=== PATIENT | female | born 1940 | race Caucasian/White ===

== ENCOUNTER 2018-04-23 20:32 | Inpatient (IN) | payer MEDICARE, OTHER ==
[~2018-04-23] VITALS: Ht 157.5 cm; Wt 59.9 kg
--- NOTE | 2018-04-23 21:01 | NUR ---
Xray at bedside
[2018-04-23 21:10] LABS: BASOPHILS % (AUTO) 0.6 % (0.0-2.0); EOSINOPHILS % (AUTO) 0.5 % (0.0-7.0); HEMATOCRIT 41.3 % (31.2-41.9); HEMOGLOBIN 14.1 g/dL (10.9-14.3); LYMPHOCYTES # (AUTO) 1.5 K/uL (20.0-40.0); LYMPHOCYTES % (AUTO) 23.1 % (20.5-51.5); MEAN CORPUSCULAR HEMOGLOBIN 30.6 uug (24.7-32.8); MEAN CORPUSCULAR HGB CONC 34 g/dL (32.3-35.6); MEAN CORPUSCULAR VOLUME 89.6 fL (75.5-95.3); MONOCYTES # (AUTO) 0.5 K/uL (2.0-10.0); NEUTROPHILS # (AUTO) 4.3 K/uL (1.8-8.9); NEUTROPHILS % (AUTO) 67.8 % (38.5-71.5); PLATELET COUNT (AUTO) 196 K/uL (179-408); RED BLOOD CELL COUNT(AUTO) 4.61 MIL/uL (3.63-4.92); WHITE BLOOD COUNT (AUTO) 6.3 K/uL (3.8-11.8)
[2018-04-23] MEDS ORDERED: ESCI5TAB PO (21:15)
[2018-04-23] MEDS ORDERED: ZOLP10TA6 PO (21:15)
[2018-04-23] MEDS ORDERED: QUET50TA PO (21:15)
[2018-04-23] MEDS ORDERED: RISP2TAB23 PO (21:15)
[2018-04-23] MEDS ORDERED: CLON0.5T12 PO (21:15)
[2018-04-23] MEDS ORDERED: MAGN400O6 PO (21:15)
[2018-04-23] MEDS ORDERED: ACET-2154 PO (21:15)
[2018-04-23] MEDS ORDERED: ATOR20TA PO (21:15)
[2018-04-23] MEDS ORDERED: GABA-534 PO (21:15)
[2018-04-23 21:22] LABS: ETHANOL < 3 MG/DL (0-0)
[2018-04-23 21:32] LABS: CARBON DIOXIDE 26 mmol/L (21-32); CHLORIDE 105 mmol/L (98-107); CREATININE 0.7 mg/dL (0.6-1.3); GLUCOSE 123 mg/dL (74-106); POTASSIUM 3.9 mmol/L (3.5-5.1); UREA NITROGEN, BLOOD 15 mg/dL (7-18)
[2018-04-23 21:36] LABS: ACETAMINOPHEN < 2.0 ug/mL (10-30); ALANINE AMINOTRANSFERASE 19 U/L (14-59); ALKALINE PHOSPHATASE 101 U/L (50-136); ASPARTATE AMINOTRANSFERASE 9 U/L (15-37); BILIRUBIN,DIRECT 0.1 mg/dL (0.0-0.2); BILIRUBIN,TOTAL 0.3 mg/dL (0.2-1.0); THYROID STIMULATING HORMONE 0.806 mIU/mL (0.358-3.740); TOTAL PROTEIN, SERUM 6.6 g/dL (6.4-8.2)
--- NOTE | 2018-04-23 21:49 | NUR ---
Report given to Jana RAPHAEL on [facility]. Patient admitted under Dr. Wiley/Audra. Dx: Psychosis. On 5150 hold for DTS
[2018-04-23 22:30] VITALS: BP 152/97
[2018-04-23] MEDS ORDERED: MAGNESIUM HYDROXIDE 30 ML LIQUID UDC PO PRN ×2 (22:30→23:00)
[2018-04-23] MEDS ORDERED: MAG HYDROX/AL HYDROX/SIMETH 30 ML LIQUID UDC PO PRN (22:30)
[2018-04-23] MEDS: TEMAZEPAM 7.5 MG CAPSULE PO PRN (23:02)
--- NOTE | 2018-04-23 23:35 | NUR ---
received to care, at 2209, from the emergency room, on a 72 hour hold for danger to self/ gravely disabled, a transfer from [facility]. according to the hold, she stated to the staff at [facility] that she planned on going to [place], and overdosing on her prescription meds. she discontinued taking her risperdal 2 weeks ago, and became paranoid toward neighbors, and now, towards doctors, nurses, and staff. pt has a past history of inpatient psychiatric hospitalizations, but she "doesn't like to talk about it". upon arrival on the unit, she immediately denied being suicidal, but stated she feels "depressed". she was cooperative with interview, but very guarded, and paranoid. she was disheveled, but declined to take a shower. she was assisted to bed. PRN restoril was given for insomnia, at 2301. as of 2334, she appears to be asleep. no distress noted. will continue to monitor closely.
--- NOTE | 2018-04-24 00:15 | NUR ---
pt is now awake. lying in bed, talking to self. will continue to monitor closely.
[2018-04-24] MEDS: LORAZEPAM 1 MG TABLET PO PRN (03:47)
--- NOTE | 2018-04-24 03:47 | NUR ---
pt has not slept. talkin gto self. intrusive into nurses station, requiring frequent redirection. pt is now verbalizing paranoid thoughts about "people" who are after her. pt was reassured, but remains anxious. PRN ativan was given at this time. will continue to monitor closely.
[2018-04-24] MEDS: ACETAMINOPHEN 325 MG TABLET PO PRN ×2 (05:58→13:17)
--- NOTE | 2018-04-24 06:00 | NUR ---
slept 1.75 hours. remains in bed. no distress noted.
[2018-04-24 07:30] VITALS: BP 106/75
--- NOTE | 2018-04-24 07:45 | NUR ---
REPORT RECEIVED FROM THAIS GUSMAN.
[2018-04-24] MEDS: GABAPENTIN 300 MG CAPSULE PO SCH ×4 (09:37→17:08)
--- NOTE | 2018-04-24 09:42 | NUR ---
PATIENT IS IN ROOM AWAKE. COMPLAINT WITH MEDICATION. STATES SHE NEEDS DENTURES TO EAT PROPERLY. WILL CHECK IF DENTURES WERE BROUGHT IN WITH HER.
--- NOTE | 2018-04-24 11:50 | NUR ---
Firearms Report: Digital Ad Trafficker completed and submitted [employer] Firearms Report on 04/24/18 for 5150 DTS and GD certification.
--- NOTE | 2018-04-24 12:16 | NUR ---
PATIENT IS NONVERBAL. EYES OPEN GIVING MEDICATION. PATIENT CLOSES EYES DOES NOT WANT TO RESPOND VERBALLY. LUNCH OFFERED CONTINUES TO CLOSE EYES AND NOT RESPOND. ALLOWED PATIENT TO REST - HAD MINIMAL SLEEP OVERNIGHT.
[2018-04-24 15:46] VITALS: BP 141/87
--- NOTE | 2018-04-24 15:52 | NUR ---
Initial Discharge Instructions: Patient was living at home [[address], [place] [address]; [phone]]. Patient refused to participate in social media community manager interview and said, "I don't want to talk about it," when asked about her living situation. SW attempted to contact the patient's son, Abebe ([phone]) twice; however, there was no answer either time. SW left a message to the son for a return call. TALHA will continue to follow-up with patient and son to gather more collateral information, as well as collaborate with pt, family, and MD regarding appropriate discharge plans for this patient. SW will form a safe and proper discharge plan.
[2018-04-24] MEDS: ATORVASTATIN 20 MG TABLET PO SCH (20:09)
[2018-04-24 20:32] VITALS: BP 129/88
[2018-04-24] MEDS ORDERED: risperiDONE 2 MG TABLET PO ONE (23:30)
[2018-04-25] MEDS: TEMAZEPAM 7.5 MG CAPSULE PO PRN (02:05)
--- NOTE | 2018-04-25 02:06 | NUR ---
GPS: Pt.still awake at this time. Paranoid,delusional and argumentative with staff. Refused to be re-directed. Thinks staff are laughing about her for no reason. Claims Risperdal med.that psychiatrist started on her does not work. Re-assured prn. Offered a sleeping pill and said "yes" but when staff giving med.she refused it despite risks vs.benefits x3. Will monitor behavior for further escalation. Quiet environment provided to facilitate sleep. Appears to be talking to self at times.
[2018-04-25 07:30] VITALS: BP 121/85
[2018-04-25] MEDS: ESCITALOPRAM OXALATE 10 MG TABLET PO SCH (09:10)
[2018-04-25] MEDS: GABAPENTIN 300 MG CAPSULE PO SCH ×3 (09:11→17:00)
--- NOTE | 2018-04-25 11:02 | NUR ---
Noted pt standing in the hallway, when asked if she was okay she stated, "I want to talk to somebody" "Im scared for my safety". When asked from whom, pt. stated "from other people" Pt refused to further go into details with me. The pt was guided to the activities room.
--- NOTE | 2018-04-25 14:31 | NUR ---
Noted pt in the hallway, after asking if she was ok she stated she had a headache. Informed I would get her Tylenol and she stated ok. After taking the Tylenol to her, she refused the medication. Tylenol wasted properly
[2018-04-25 15:33] VITALS: BP 132/83
--- NOTE | 2018-04-25 17:21 | NUR ---
Pt. refused Neurontin, stating she only takes it once a day. Explain risks and benefits, offered 3 times, pt.still refused
--- NOTE | 2018-04-25 18:54 | NUR ---
Pt was noted in her gown and laying in her bed most of day however saw the pt walk up and down the hallways a few times. Pt was complaint with morning medications but refused Tylenol for her headache and refused her 1700HRS neurontin. Flat affect noted.
[2018-04-25 20:00] VITALS: BP 113/73
[2018-04-25] MEDS: risperiDONE 2 MG TABLET PO SCH (20:03)
[2018-04-25] MEDS: ACETAMINOPHEN 325 MG TABLET PO PRN (20:03)
[2018-04-25] MEDS: ATORVASTATIN 20 MG TABLET PO SCH (20:03)
--- NOTE | 2018-04-25 21:26 | NUR ---
GPS: Pt. took bedtime meds. earlier after a lot of persuasion from staff. Pt.is paranoid,suspicious and manipulative. Argumentative and confrontational when she does not get what she wants. Re-directed and re-assured frequently. Will continue to monitor.
[2018-04-26 07:30] VITALS: BP 111/65
[2018-04-26] MEDS: GABAPENTIN 300 MG CAPSULE PO SCH ×3 (09:49→17:44)
[2018-04-26] MEDS: ESCITALOPRAM OXALATE 10 MG TABLET PO SCH (09:50)
[2018-04-26 15:36] VITALS: BP 136/77
--- NOTE | 2018-04-26 18:36 | NUR ---
patient has been intrusive going in and out of other patients rooms with frequent re direction and her speech is pressured and patient stated she s not hungry when asked too eat, dishelved clothing continue to monitor for safety
[2018-04-26 20:00] VITALS: BP 126/78
[2018-04-26] MEDS: risperiDONE 2 MG TABLET PO SCH (20:18)
[2018-04-26] MEDS: ATORVASTATIN 20 MG TABLET PO SCH (20:18)
[2018-04-26] MEDS: LORAZEPAM 1 MG TABLET PO PRN ×2 (21:30→21:49)
--- NOTE | 2018-04-26 21:50 | NUR ---
GPS: PATIENT IS VERY AGITATED WONDERING AROUND TO MALE ROOM. CONFUSED AND DISORIENTED. REORIENTATION PROVIDED. ATIVAN 1 MG PO GIVEN FOR AGITATION.
--- NOTE | 2018-04-26 22:50 | NUR ---
GPS: PATIENT SLEEPING QUIETLY NOW. NO MORE AGITATION NOTED PRN EFFECTIVE FOR AGITATION.
--- NOTE | 2018-04-27 06:02 | NUR ---
GPS: REMAIN CALM AFTER ATIVAN GIVEN LAST NIGHT. SLEPT 6:30 HRS THROUGH THE NIGHT. NO BEHAVIOR PROBLEM NOTED AT THIS TIME CONTINUE PLAN OF CARE.
[2018-04-27 07:30] VITALS: BP 117/77
[2018-04-27] MEDS: GABAPENTIN 300 MG CAPSULE PO SCH ×3 (09:00→16:19)
[2018-04-27] MEDS: ESCITALOPRAM OXALATE 10 MG TABLET PO SCH ×2 (09:00→17:23)
[2018-04-27] MEDS: LORAZEPAM 1 MG TABLET PO PRN ×2 (10:33→17:24)
[2018-04-27 16:21] VITALS: BP 148/88
[2018-04-27 19:45] VITALS: BP 119/68
[2018-04-27] MEDS: ATORVASTATIN 20 MG TABLET PO SCH (20:19)
[2018-04-27] MEDS: risperiDONE 2 MG TABLET PO SCH (20:19)
[2018-04-27] MEDS: TEMAZEPAM 7.5 MG CAPSULE PO PRN (22:48)
--- NOTE | 2018-04-27 22:49 | NUR ---
GPS: Pt.requested for a sleeping pill,but when staff about to offer it,pt.refused it despite explanation of risks.vs benefits x3. Pt.is paranoid,suspicious and intrusive at this time. Re-directed at this time. Quiet environment provided to facilitate sleep. Will continue to monitor.
[2018-04-28] MEDS: LORAZEPAM 1 MG TABLET PO PRN (00:47)
--- NOTE | 2018-04-28 00:47 | NUR ---
GPS: Pt.came out to the nursing station and feeling anxious. Paranoid and delusional . Re-assured and re-directed. Agreed to take Ativan 1mg PO which she did. Will monitor effectiveness.
[2018-04-28 07:30] VITALS: BP 108/57
[2018-04-28] MEDS: ESCITALOPRAM OXALATE 10 MG TABLET PO SCH ×2 (09:00→14:24)
[2018-04-28] MEDS: risperiDONE 1 MG TABLET PO SCH ×2 (09:00→14:24)
[2018-04-28] MEDS: GABAPENTIN 300 MG CAPSULE PO SCH ×3 (09:00→17:00)
[2018-04-28 16:04] VITALS: BP 133/89
[2018-04-28] MEDS: risperiDONE 2 MG TABLET PO SCH (20:27)
[2018-04-28] MEDS: ATORVASTATIN 20 MG TABLET PO SCH (20:27)
[2018-04-28 20:43] VITALS: BP 127/83
--- NOTE | 2018-04-29 00:07 | NUR ---
GPS: Pt. just sitting outside by her room in the hallway. Refused her bedtime meds.earlier despite explanation of importance. Refused to have any interaction with the staff. Paranoid and suspicious. Re-directed prn. Restoril 7.5 mg was offered but refused. Will continue to monitor.
--- NOTE | 2018-04-29 04:04 | NUR ---
GPS: Pt.keeps coming to the nurses station at this time. Paranoid,suspicious and intrusive. Constant re-direction provided. Ativan 1mg PO offered several times for anxiety but refused. Monitored for further escalation of behavior.
[2018-04-29 07:46] LABS: BASOPHILS % (AUTO) 0.7 % (0.0-2.0); EOSINOPHILS # (AUTO) 0.1 K/uL (0.0-0.7); EOSINOPHILS % (AUTO) 1.3 % (0.0-7.0); HEMATOCRIT 37.3 % (31.2-41.9); LYMPHOCYTES # (AUTO) 1.4 K/uL (20.0-40.0); LYMPHOCYTES % (AUTO) 22.5 % (20.5-51.5); MEAN CORPUSCULAR HEMOGLOBIN 31.2 uug (24.7-32.8); MEAN CORPUSCULAR HGB CONC 35 g/dL (32.3-35.6); MEAN CORPUSCULAR VOLUME 89.5 fL (75.5-95.3); MONOCYTES # (AUTO) 0.5 K/uL (2.0-10.0); MONOCYTES % (AUTO) 8.5 % (0.0-11.0); NEUTROPHILS # (AUTO) 4.1 K/uL (1.8-8.9); PLATELET COUNT (AUTO) 203 K/uL (179-408); RED BLOOD CELL COUNT(AUTO) 4.17 MIL/uL (3.63-4.92); WHITE BLOOD COUNT (AUTO) 6.1 K/uL (3.8-11.8)
[2018-04-29 07:56] LABS: CARBON DIOXIDE 28 mmol/L (21-32); CHLORIDE 105 mmol/L (98-107); CREATININE 0.8 mg/dL (0.6-1.3); GLUCOSE 105 mg/dL (74-106); POTASSIUM 4.2 mmol/L (3.5-5.1); UREA NITROGEN, BLOOD 22 mg/dL (7-18)
[2018-04-29] MEDS: ESCITALOPRAM OXALATE 10 MG TABLET PO SCH (09:00)
[2018-04-29] MEDS: GABAPENTIN 300 MG CAPSULE PO SCH ×3 (09:00→17:17)
[2018-04-29] MEDS: risperiDONE 1 MG TABLET PO SCH (09:00)
[2018-04-29 09:13] VITALS: BP 136/90
[2018-04-29] MEDS: risperiDONE 2 MG TABLET PO SCH ×2 (13:27→21:00)
[2018-04-29 15:51] VITALS: BP 119/73
[2018-04-29 20:15] VITALS: BP 129/73
[2018-04-29] MEDS: ATORVASTATIN 20 MG TABLET PO SCH (21:00)
[2018-04-30] MEDS: TEMAZEPAM 7.5 MG CAPSULE PO PRN (01:23)
[2018-04-30] MEDS: ACETAMINOPHEN 325 MG TABLET PO PRN (01:23)
[2018-04-30 08:00] VITALS: BP 136/83
[2018-04-30] MEDS: GABAPENTIN 300 MG CAPSULE PO SCH ×3 (09:00→17:51)
[2018-04-30] MEDS: risperiDONE 1 MG TABLET PO SCH (09:00)
[2018-04-30] MEDS: ESCITALOPRAM OXALATE 10 MG TABLET PO SCH (09:00)
--- NOTE | 2018-04-30 10:02 | NUR ---
offered 4x her morning medications ,explaining the risk and benefit but patient strongly refused, paranoid stated " I'm not taking it , this not my medications. " Patient continue responding to internal stimuli- reality orientation provided prn.
[2018-04-30 16:02] VITALS: BP 153/87
[2018-04-30 21:05] VITALS: BP 119/66
[2018-04-30] MEDS: ATORVASTATIN 20 MG TABLET PO SCH (21:16)
[2018-04-30] MEDS: risperiDONE 2 MG TABLET PO SCH (21:16)
[2018-05-01] MEDS: TEMAZEPAM 7.5 MG CAPSULE PO PRN (01:07)
--- NOTE | 2018-05-01 04:31 | NUR ---
GPS/NSG Patient first observed awake in room, oriented to name and place. Patient was compliant with medication however later in the shift found her coming out of the room repeatedly claiming she had not received her medication. Patient's appearance unkempt and disheveled. Patient uncooperative, required frequent redirection required security assistance to escort patient to her room after prn for insomnia was administered patient insisted on remaining out in the hallway making random demands ie: fixodent, sandwich, medication. Poor eye contact when engaged, speech garbled with disorganized thought process, bizarre and tangental, displayed delusional behavior by responding to internal stimuli. Affect appeared flat with low mood also noted were periods with increased agitation. Overall poor judgement and insight, unable to formulate plan for self care. Patient unable to deny suicidal ideation, remains silent when asked. Will continue to monitor for safety.
--- NOTE | 2018-05-01 06:12 | NUR ---
Patient visible on unit, uncooperative stating "you killed my son" -"you know you did". Patient escorted to room by staff, patient is unmanageable and continues to display bizarre affect, body language and behavior. prn for insomnia administered with ineffective outcome, patient slept a total of two and a half hours.
[2018-05-01 07:30] VITALS: BP 128/76
--- NOTE | 2018-05-01 07:35 | NUR ---
PATIENT RECEIVED ROAMING HALLWAYS, A AND O X 1, FLAT AFFECT NOTED, NEEDS CONSTANT REDIRECTION. PER CHAIRMAN & CEO, PATIENT ONLY SLEPT 2 HOURS. CONTINUES TO BE NON COMPLIANT WITH MEDICATION. RIESE HEARING TO BE SCHEDULED. SAFETY PRECS OBSERVED AT ALL TIMES. COMFORT MEASURES PROVIDED. WILL CONTINUE TO MONITOR CLOSELY.
[2018-05-01] MEDS: risperiDONE 1 MG TABLET PO SCH ×3 (08:01→16:51)
[2018-05-01] MEDS: GABAPENTIN 300 MG CAPSULE PO SCH ×4 (08:01→16:50)
[2018-05-01] MEDS: ESCITALOPRAM OXALATE 10 MG TABLET PO SCH ×2 (08:01→08:39)
[2018-05-01 14:27] VITALS: BP 131/81
--- NOTE | 2018-05-01 16:53 | NUR ---
ADMINISTERED RISPERIDONE 1MG NOW PER DR. MOLINA'S ORDERS. PATIENT TRIED TO ARGUE STATING "I DIDN'T SAY WHAT TIME I WOULD TAKE IT". REORIENTED PATIENT THAT SHE WAS JUST SEEN BY DR. MOLINA AND SHE AGREED TO TAKE IT MEDICATION NOW. WILL CONTINUE TO MONITOR.
[2018-05-01 20:00] VITALS: BP 131/80
--- NOTE | 2018-05-01 20:00 | NUR ---
RECEIVED PATIENT STANDING IN DOORWAY. ALERT TO SELF ONLY. CATATONIC/FLAT AFFECT NOTED. NEEDS FREQUENT REDIRECTION. ASSISTED PATIENT TO SIT IN CHAIR. VERY PASSIVE WHEN SPOKEN TO. NO S/S OF PAIN OR DISCOMFORT. VS WNL. WILL CONTINUE TO MONITOR AND ASSESS.
[2018-05-01] MEDS: ATORVASTATIN 20 MG TABLET PO SCH (20:34)
[2018-05-01] MEDS: risperiDONE 2 MG TABLET PO SCH (20:34)
--- NOTE | 2018-05-02 00:55 | NUR ---
PATIENT OOB AND LIED HER DOWN ON THE FLOOR IN THE MIDDLE OF THE HALLWAY. REFUSING TO GET UP. ASSISTED PATIENT BACK IN BED. BED ALARM ON. WILL CONTINUE TO MONITOR AND ASSESS.
--- NOTE | 2018-05-02 01:00 | NUR ---
PATIENT BACK OOB AGAIN. ASSISTED PATIENT TO SARINA-CHAIR. PATIENT IS VERY CONFUSED AND DISORIENTED. NEEDS FREQUENT REDIRECTION. WILL CONTINUE TO MONITOR AND ASSESS.
--- NOTE | 2018-05-02 06:48 | NUR ---
PATIENT AWAKE. SLEPT A TOTAL OF 1 HOUR AND 30 MINUTES. FLAT AFFECT AND VERY PASSIVE WHEN APPROACHED. NO S/S OF PAIN OR DISCOMFORT. ALL NEEDS ATTENDED. WILL CONTINUE TO MONITOR AND ASSESS.
[2018-05-02 07:30] VITALS: BP 131/76
[2018-05-02] MEDS: risperiDONE 1 MG TABLET PO SCH (09:00)
[2018-05-02] MEDS: ESCITALOPRAM OXALATE 10 MG TABLET PO SCH (09:00)
[2018-05-02] MEDS: GABAPENTIN 300 MG CAPSULE PO SCH ×3 (09:00→17:00)
[2018-05-02 16:15] VITALS: BP 132/86
[2018-05-02 20:08] VITALS: BP 120/86
[2018-05-02] MEDS: risperiDONE 2 MG TABLET PO SCH (20:34)
[2018-05-02] MEDS: ATORVASTATIN 20 MG TABLET PO SCH (20:34)
[2018-05-03 07:30] VITALS: BP 120/55
[2018-05-03] MEDS: risperiDONE 1 MG TABLET PO SCH (08:20)
[2018-05-03] MEDS: GABAPENTIN 300 MG CAPSULE PO SCH ×4 (08:21→17:00)
[2018-05-03] MEDS: ESCITALOPRAM OXALATE 10 MG TABLET PO SCH (08:21)
--- NOTE | 2018-05-03 09:36 | NUR ---
Patient noted resting in bed, refused all am medications, no facial cues of pain, no signs of distress noted, bed locked and in lowest positions, all needs met at this time
--- NOTE | 2018-05-03 11:33 | NUR ---
GPS: Nursing Notes: Refusing Psych. Medications: Patient is awake and responding to her name, paranoid behavior, guarded, re-offer her psych. medications again per psychiatrist request, but continue to be refusing her medications by putting them into her mouth and then into her hands, refusing to give the pills to staff, trying to scratch staff when trying to get the pills back, unable to be redirected, resistant with nursing care, unable to formulate a plan for self care, believes that everyone here is against her, continue with treatment plan.
[2018-05-03] MEDS ORDERED: HALOPERIDOL LACTATE 5 MG/1 ML VIAL IM STA (11:42)
[2018-05-03] MEDS ORDERED: LORAZEPAM 2 MG/1 ML VIAL IM STA (11:42)
--- NOTE | 2018-05-03 18:51 | NUR ---
Patient refused all PO medications this shift, decrease in agitation noted after receiving shot of Ativan and Haldol per MD orders for combativeness, will give report to shift nurse manager nurse
[2018-05-03 20:29] VITALS: BP 95/63
[2018-05-03] MEDS: ATORVASTATIN 20 MG TABLET PO SCH (21:00)
[2018-05-03] MEDS: risperiDONE 2 MG TABLET PO SCH (21:00)
--- NOTE | 2018-05-04 07:28 | NUR ---
GPS/NSG PATIENT FIRST OBSERVED AWAKE, ALERT, ORIENTED TO NAME, PATIENT IS HARD TO REDIRECT, APPEARS CATATONIC AT TIMES, REFUSES MEDICATION, OBSERVED TO HAVE EPISODES WHEN SHE LAUNCHES HERSELF TO THE FLOOR , NO INJURY OBSERVED, PATIENT OBSERVED RESPONDING TO INTERNAL STIMULI, LAUGHING AT ONE TIME, THEN ACCUSING STAFF OF KILLING HER SON, TANGENTAL AND DISORGANIZED. PATIENT HAS A RIESE HEARING THIS A.M. WILL CONTINUE TO MONITOR FOR SAFETY. PATIENT SLEPT A TOTAL OF FOUR HOURS. CONTINUE TO FOLLOW PLAN OF CARE.
[2018-05-04 07:30] VITALS: BP 115/68
[2018-05-04] MEDS: ESCITALOPRAM OXALATE 10 MG TABLET PO SCH (08:29)
[2018-05-04] MEDS: risperiDONE 1 MG TABLET PO SCH (08:29)
[2018-05-04] MEDS: GABAPENTIN 300 MG CAPSULE PO SCH ×3 (08:29→16:39)
[2018-05-04 19:30] VITALS: BP 144/72
[2018-05-04] MEDS: risperiDONE 2 MG TABLET PO SCH (20:58)
[2018-05-04] MEDS: ATORVASTATIN 20 MG TABLET PO SCH (20:58)
[2018-05-05] MEDS: ESCITALOPRAM OXALATE 10 MG TABLET PO SCH ×2 (08:49→09:00)
[2018-05-05] MEDS: GABAPENTIN 300 MG CAPSULE PO SCH ×4 (08:49→16:22)
[2018-05-05] MEDS: risperiDONE 1 MG TABLET PO SCH ×2 (08:50→09:00)
[2018-05-05 15:11] VITALS: BP 112/70
--- NOTE | 2018-05-05 17:30 | NUR ---
PATIENT WAS QUIET BUT DOES NOT COOPERATE WITH STAFF FOR CARE GIVEN REFUSED ALL MEDICATION AND EAT SMALL AMT NO ACUTE DISTRESS OR S/I ,OR HALLUCIANATION SAFETY MEASURE PROVIDED CLOSED OBSERVATION CALL [facility] IN REACH
--- NOTE | 2018-05-05 19:45 | NUR ---
RECEIVED PATIENT IN HER ROOM. SHE IS NOTED AWAKE, A/O X 1. UNCOOPERATIVE, LOW MOOD, FLAT AFFECT. REFUSING TO TALK. SHE STATED, "I DON'T WANT TO TALK RIGHT NOW, GO AWAY". MULTIPLE REDIRECTION GIVEN; HOWEVER, INEFFECTIVE. SAFETY WAS EMPHASIS, BED AT LOWEST POSITION, WITH WHEELS LOCKS AND FREQUENT HEAD CHECKS. WILL CONTINUE TO MONITOR.
[2018-05-05 20:00] VITALS: BP 123/64
[2018-05-05] MEDS: risperiDONE 2 MG TABLET PO SCH (20:49)
[2018-05-05] MEDS: ATORVASTATIN 20 MG TABLET PO SCH (20:53)
--- NOTE | 2018-05-05 21:00 | NUR ---
PATIENT WAS ABLE TO TAKE RISPERDAL 2MG PO QHS; HOWEVER, SHE INITIALLY WAS NOTED CHEEKING THE PILL. MULTIPLE REDIRECTION GIVEN, SHE WAS ASKED TO OPEN HER MOUTH. PATIENT FINALLY SWALLOWED PILL. SHE REFUSED LIPITOR 20MG QHS. WILL CONTINUE TO MONITOR CLOSELY.
[2018-05-06 07:30] VITALS: BP 129/73
[2018-05-06] MEDS: GABAPENTIN 300 MG CAPSULE PO SCH ×4 (08:23→16:22)
[2018-05-06] MEDS: risperiDONE 1 MG TABLET PO SCH (08:23)
[2018-05-06] MEDS: ESCITALOPRAM OXALATE 10 MG TABLET PO SCH ×2 (08:24→09:00)
--- NOTE | 2018-05-06 10:09 | NUR ---
PATIENT IS BED, REFUSED BLOOD DRAW. SHE CONTINUE BEEN NON-VERBAL. SHE ONLY SAID "NO" WHE WE ASK HER ABOUT TO DRAW HER BLOOD. DURING MEDICATION ADMINISTRATION, SHE WAS STARRING ME THE WHOLE TIME, REFUSING TO TAKE MEDICATIONS, SHE SPITTED OUT LEXAPRO. IJEOMA MARIE TRIED TO QUALITY CONSULTANT HER MEDS LATER. SHE WAS SUCCESSFUL, PATIENT TOOK HER RISPERDAL PO. WILL CONTINUE MONITORING.
[2018-05-06 16:02] VITALS: BP 144/75
[2018-05-06] MEDS: HYDROCORTISONE 0.5% CREAM 28.35 GM TUBE TOP SCH ×2 (17:08→21:00)
--- NOTE | 2018-05-06 18:11 | NUR ---
PATIENT BEEN IN BED ALL DAY, CONTINUE BEEN SELECTIVELY MUTE. POOR APPETITE, SHE DRANK SOME OF THE ENSURE WITH HER PM MEDICATION. COMMUTATOR PRESSER TRIED TO BUSINESS OWNER/ENGINEER A SHOWER TODAY, BUT SHE GRABBED THE SHEETS HARD REFUSING. SAFETY WAS PROVIDED DURING MY SHIFT. WILL CONTINUE MONITORING.
[2018-05-06 20:21] VITALS: BP 128/73
[2018-05-06] MEDS: risperiDONE 2 MG TABLET PO SCH (21:00)
[2018-05-06] MEDS: ATORVASTATIN 20 MG TABLET PO SCH (21:00)
[2018-05-06] MEDS ORDERED: TEMAZEPAM 7.5 MG CAPSULE PO PRN (22:45)
[2018-05-06] MEDS ORDERED: LORAZEPAM 0.5 MG TABLET PO PRN (22:45)
[2018-05-07 07:30] VITALS: BP 123/75
[2018-05-07] MEDS: ESCITALOPRAM OXALATE 10 MG TABLET PO SCH ×2 (09:00→13:27)
[2018-05-07] MEDS: GABAPENTIN 300 MG CAPSULE PO SCH ×4 (09:00→17:42)
[2018-05-07] MEDS: risperiDONE 1 MG TABLET PO SCH (09:00)
[2018-05-07] MEDS: HYDROCORTISONE 0.5% CREAM 28.35 GM TUBE TOP SCH ×2 (09:19→22:53)
[2018-05-07] MEDS: HALOPERIDOL LACTATE 5 MG/1 ML VIAL IM PRN (09:20)
[2018-05-07] MEDS: DOCUSATE SODIUM 100 MG CAPSULE PO SCH ×2 (13:30→21:51)
[2018-05-07 16:00] VITALS: BP 102/63
[2018-05-07] MEDS ORDERED: BISACODYL 10 MG SUPP.RECT RC ONE (16:45)
[2018-05-07] MEDS ORDERED: MAGNESIUM HYDROXIDE 30 ML LIQUID UDC PO ONE (16:45)
--- NOTE | 2018-05-07 17:43 | NUR ---
Gps/Program Coordinator For [facility]- Awakened from her nap, assisted with her dinner, needed prompting, and a lot of encouragement to take bites of soft foods as requested. Able to drink her supplement w/ lots of prompting. Not interactive, quiet, occ.staring noted.Safety reviewed emphasized. Per her daughter Jossy echeverria she'll try to come back tonight if possible to assist staff in administering her mother's night meds.Instructed to call the unit first.
[2018-05-07 21:37] VITALS: BP 100/53
[2018-05-07] MEDS: ATORVASTATIN 20 MG TABLET PO SCH (21:51)
[2018-05-07] MEDS: risperiDONE 2 MG TABLET PO SCH (21:51)
[2018-05-08 07:09] LABS: BASOPHILS % (AUTO) 0.5 % (0.0-2.0); EOSINOPHILS # (AUTO) 0.1 K/uL (0.0-0.7); EOSINOPHILS % (AUTO) 1.2 % (0.0-7.0); HEMATOCRIT 40.4 % (31.2-41.9); HEMOGLOBIN 13.7 g/dL (10.9-14.3); LYMPHOCYTES # (AUTO) 1.6 K/uL (20.0-40.0); LYMPHOCYTES % (AUTO) 25.5 % (20.5-51.5); MEAN CORPUSCULAR HEMOGLOBIN 30.6 uug (24.7-32.8); MEAN CORPUSCULAR HGB CONC 34 g/dL (32.3-35.6); MEAN CORPUSCULAR VOLUME 90.2 fL (75.5-95.3); MONOCYTES # (AUTO) 0.6 K/uL (2.0-10.0); MONOCYTES % (AUTO) 8.9 % (0.0-11.0); NEUTROPHILS % (AUTO) 63.9 % (38.5-71.5); PLATELET COUNT (AUTO) 209 K/uL (179-408); RED BLOOD CELL COUNT(AUTO) 4.47 MIL/uL (3.63-4.92); WHITE BLOOD COUNT (AUTO) 6.2 K/uL (3.8-11.8)
[2018-05-08 07:35] LABS: ALANINE AMINOTRANSFERASE 21 U/L (14-59); ALKALINE PHOSPHATASE 86 U/L (50-136); ASPARTATE AMINOTRANSFERASE 17 U/L (15-37); BILIRUBIN,TOTAL 0.5 mg/dL (0.2-1.0); CARBON DIOXIDE 31 mmol/L (21-32); CHLORIDE 105 mmol/L (98-107); CREATININE 0.8 mg/dL (0.6-1.3); GLUCOSE 97 mg/dL (74-106); MAGNESIUM 2.2 mg/dL (1.8-2.4); PHOSPHOROUS 3.7 mg/dL (2.5-4.9); POTASSIUM 4.2 mmol/L (3.5-5.1); TOTAL PROTEIN, SERUM 6.2 g/dL (6.4-8.2); UREA NITROGEN, BLOOD 26 mg/dL (7-18)
[2018-05-08] MEDS: ESCITALOPRAM OXALATE 10 MG TABLET PO SCH (09:00)
[2018-05-08] MEDS: GABAPENTIN 300 MG CAPSULE PO SCH ×3 (09:00→17:00)
[2018-05-08] MEDS: risperiDONE 1 MG TABLET PO SCH (09:00)
[2018-05-08] MEDS: DOCUSATE SODIUM 100 MG CAPSULE PO SCH ×2 (09:00→21:00)
[2018-05-08] MEDS: HALOPERIDOL LACTATE 5 MG/1 ML VIAL IM PRN (09:25)
[2018-05-08] MEDS: HYDROCORTISONE 0.5% CREAM 28.35 GM TUBE TOP SCH ×2 (09:29→20:57)
[2018-05-08] MEDS ORDERED: LACTULOSE 20 G/30 ML LIQUID UDC PO ONE (11:15)
[2018-05-08] MEDS ORDERED: LACTULOSE 20 G/30 ML LIQUID UDC PO PRN (11:15)
[2018-05-08] MEDS ORDERED: HALOPERIDOL DECANOATE 50 MG/1 ML AMPUL IM ONE (12:00)
--- NOTE | 2018-05-08 13:00 | NUR ---
Gps/Acid Patroller-Refusing to eat lunch, refusing routine po.meds, able to say dont want them. Fluids offered, patient still refused. Encouraged verbalizations of her needs.Staying in bed of the morning.
--- NOTE | 2018-05-08 14:12 | NUR ---
Gps/Table Saw Operator- Decanoate haldol 25 mg , 0.5 ml was administered to her LUOQ of her buttock . Patient was informed of the medication, administered as ordered,
[2018-05-08 15:44] VITALS: BP 133/86
[2018-05-08] MEDS: ATORVASTATIN 20 MG TABLET PO SCH (21:00)
[2018-05-08] MEDS: risperiDONE 2 MG TABLET PO SCH (21:00)
[2018-05-08 21:41] VITALS: BP 139/79
[2018-05-09 07:30] VITALS: BP_SYST 104; BP_SYST 121; BP_DIAS 60; BP_DIAS 70
[2018-05-09] MEDS: ESCITALOPRAM OXALATE 10 MG TABLET PO SCH (08:58)
[2018-05-09] MEDS: DOCUSATE SODIUM 100 MG CAPSULE PO SCH ×2 (08:58→21:00)
[2018-05-09] MEDS: risperiDONE 1 MG TABLET PO SCH (08:59)
[2018-05-09] MEDS: GABAPENTIN 300 MG CAPSULE PO SCH ×3 (08:59→17:00)
[2018-05-09] MEDS: HYDROCORTISONE 0.5% CREAM 28.35 GM TUBE TOP SCH ×2 (09:02→21:00)
[2018-05-09] MEDS: HALOPERIDOL LACTATE 5 MG/1 ML VIAL IM PRN (09:03)
[2018-05-09] MEDS ORDERED: MAGNESIUM HYDROXIDE 30 ML LIQUID UDC PO ONE (11:30)
[2018-05-09] MEDS ORDERED: BISACODYL 10 MG SUPP.RECT RC ONE (11:30)
--- NOTE | 2018-05-09 14:30 | NUR ---
Gps/Orange Peel Operator- Patient's daughter Olivia brought food from home assisted pt. with her food intake, fluids was encouraged.
[2018-05-09 15:39] VITALS: BP 127/81
--- NOTE | 2018-05-09 16:30 | NUR ---
Gps/Horse Race Starter- Assisted back to bed, not interactive, stayed up on her itzel-chair during activities. Refusing to take routine pm.meds., fluids offered and encouraged.
--- NOTE | 2018-05-09 19:45 | NUR ---
RECEIVED PATIENT IN HER ROOM, SHE IS NOTED AWAKE A/O X 1. SHE IS NOTED WITH DEPRESSED MOOD, FLAT AFFECT, WITHDRAWAL TO HER ROOM IN BED, SARCASTIC AND SELECTIVELY MUTE AT TIMES. SAFETY WAS EMPHASIS, WILL CONTINUE TO MONITOR.
[2018-05-09] MEDS: ATORVASTATIN 20 MG TABLET PO SCH (21:00)
[2018-05-09] MEDS: risperiDONE 2 MG TABLET PO SCH (21:23)
--- NOTE | 2018-05-09 21:30 | NUR ---
PATIENT NOTED SUSPICIOUS, SHE STATED, "NO, THAT IS NOT RISPERIDONE." MULTIPLE REDIRECTION GIVEN, PT WAS ABLE TO COMPLY WITH PSYCH MEDICATION REGIMENT EXCEPT FOR COLACE AND LIPITOR. CONTINUE WITHDRAWAL, DELUSIONAL, SHE STATED, "DON'T TALK TO ME LIKE THAT". CONTINUE GUARDED AND SELECTIVELY MUTE AT TIMES. WILL CONTINUE TO MONITOR.
[2018-05-10 08:30] VITALS: BP 105/62
[2018-05-10] MEDS: GABAPENTIN 300 MG CAPSULE PO SCH ×3 (09:00→17:00)
[2018-05-10] MEDS: ESCITALOPRAM OXALATE 10 MG TABLET PO SCH (09:00)
[2018-05-10] MEDS: risperiDONE 1 MG TABLET PO SCH (09:00)
[2018-05-10] MEDS ORDERED: HALOPERIDOL LACTATE 5 MG/1 ML VIAL IM PRN (09:00)
[2018-05-10] MEDS: DOCUSATE SODIUM 100 MG CAPSULE PO SCH ×2 (09:00→21:00)
[2018-05-10] MEDS: HYDROCORTISONE 0.5% CREAM 28.35 GM TUBE TOP SCH ×2 (09:06→21:17)
[2018-05-10] MEDS ORDERED: FLEET ENEMA 133 ML BOTTLE RC ONE (11:15)
[2018-05-10 15:48] VITALS: BP 121/63
[2018-05-10] MEDS: POLYVINYL ALCOHOL OPHT DROPS 15 ML BOTTLE EACHEYE SCH (18:00)
[2018-05-10] MEDS: ATORVASTATIN 20 MG TABLET PO SCH (21:00)
[2018-05-10] MEDS: risperiDONE 2 MG TABLET PO SCH (21:17)
[2018-05-10 21:21] VITALS: BP 121/75
[2018-05-11] MEDS: POLYVINYL ALCOHOL OPHT DROPS 15 ML BOTTLE EACHEYE SCH ×2 (06:00→17:19)
[2018-05-11 07:30] VITALS: BP 125/81
[2018-05-11] MEDS: risperiDONE 1 MG TABLET PO SCH (09:00)
[2018-05-11] MEDS: ESCITALOPRAM OXALATE 10 MG TABLET PO SCH (09:00)
[2018-05-11] MEDS: DOCUSATE SODIUM 100 MG CAPSULE PO SCH ×2 (09:00→21:23)
[2018-05-11] MEDS: GABAPENTIN 300 MG CAPSULE PO SCH ×3 (09:00→17:00)
[2018-05-11] MEDS: HYDROCORTISONE 0.5% CREAM 28.35 GM TUBE TOP SCH ×2 (09:00→21:24)
--- NOTE | 2018-05-11 19:40 | NUR ---
RECEIVED PATIENT IN THE DAY ROOM. SHE IS NOTED A/O X 1. SHE IS ABLE TO AMBULATE WITH STEADY GAIT AND ABLE TO MAKE HER NEEDS KNOWN. SHE IS NOTED CALM, LOW MOOD, SOFT VOICE, FLAT AFFECT. SNACKS WERE OFFERED. PT HAD SOME PUDDING. SAFETY WAS EMPHASIS. WILL CONTINUE TO MONITOR CLOSELY.
[2018-05-11] MEDS: risperiDONE 2 MG TABLET PO SCH (21:23)
[2018-05-11] MEDS: ATORVASTATIN 20 MG TABLET PO SCH (21:23)
--- NOTE | 2018-05-11 21:45 | NUR ---
PATIENT NOTED LESS GUARDED, LESS SUSPICIOUS; SHE WAS COMPLIANT WITH ALL HER QHS MEDICATION REGIMENT. SHE IS ABLE TO BE REDIRECTED AT THIS TIME. WILL CONTINUE TO MONITOR.
[2018-05-12] MEDS: POLYVINYL ALCOHOL OPHT DROPS 15 ML BOTTLE EACHEYE SCH (06:00)
[2018-05-12 07:30] VITALS: BP 116/70
[2018-05-12] MEDS: HYDROCORTISONE 0.5% CREAM 28.35 GM TUBE TOP SCH (09:00)
[2018-05-12] MEDS: DOCUSATE SODIUM 100 MG CAPSULE PO SCH (09:00)
[2018-05-12] MEDS: ESCITALOPRAM OXALATE 10 MG TABLET PO SCH (09:00)
[2018-05-12] MEDS: risperiDONE 1 MG TABLET PO SCH (09:00)
[2018-05-12] MEDS: GABAPENTIN 300 MG CAPSULE PO SCH ×2 (09:00→12:41)
--- NOTE | 2018-05-12 09:59 | NUR ---
Discharge Note: Patient will be discharged to [facility] [[address] [place] [address]; ] via ambulance. Spoke with Hudson and KARINA at the facility who state they are ready to accept the patient today. Spoke with patient's daughter, Ramin ([phone]) who is aware and agreeable with discharge plans. Patient is alert and oriented x2 and denies SI/HI. Patient will follow-up at the facility with Dr. Trejo (Bilingual Teacher) and Dr. Wiley (Psychiatrist).
--- NOTE | 2018-05-12 14:15 | NUR ---
GPS: Nursing Notes: Discharge Notes: Patient is awake and responding to her name, guarded, needs assistance with ADL's, ambulatory, self care, denies any SI/HI, denies any AH/VH, denies any pain or discomfort, denies any SOB, discharge to [facility] at [address] [place] [id number] , report given to Fany RN paperhanger supervisor, transported to facility via ambulance, took all her belongings with her. cleaner touch up worker spoke with patient's daughter, Ramin ([phone]) who is aware and agreeable with discharge plans. Patient is alert and oriented x2 and denies SI/HI. Patient will follow-up at the facility with Dr. Trejo (Swing Type Lathe Operator) and Dr. Wiley (Psychiatrist).
[2018-06-01] MEDS ORDERED: HALOPERIDOL DECANOATE 50 MG/1 ML AMPUL IM SCH (12:15)
== END 2018-05-12 14:15 | DRG 885 ==
LOC: ER 20:35 → GPS 22:02
PROVIDERS: ADMIT Psychiatry & Neurology Psychiatry; ATTEND Nurse Practitioner Acute Care
DX: F31.5 Bipolar disorder, current episode depressed, severe, with psychotic features (principal); E78.5 Hyperlipidemia, unspecified; G62.9 Polyneuropathy, unspecified; F41.9 Anxiety disorder, unspecified; Z79.899 Other long term (current) drug therapy; K59.00 Constipation, unspecified; E88.09 Other disorders of plasma-protein metabolism, not elsewhere classified; R21 Rash and other nonspecific skin eruption
CPT/HCPCS: 36415; 70030-TC; 71045; 74018; 83605; 83735; 84100; 84443; 85025; 85730; 87040; 93005; A4663; G0480; G0480-TC; J1630; J1631; J2060